=== PATIENT | female | born 1945 | race Caucasian/White ===

== ENCOUNTER → 2021-04-30 | Outpatient (CLI) | payer MEDICARE, OTHER | LOC: MAMMO 12:52 | PROVIDERS: ATTEND Family Medicine | DX: Z12.31 Encounter for screening mammogram for malignant neoplasm of breast (principal) | CPT/HCPCS: 77063; 77067 ==

== ENCOUNTER 2021-05-29 13:06 | Emergency (ER) | payer MEDICARE, OTHER ==
[~2021-05-29] VITALS: Ht 157.5 cm; Wt 59.0 kg
[2021-05-29 13:06] VITALS: BP 137/87
--- NOTE | 2021-05-29 13:47 | PHYS DOC ---
Past History Past Medical History: Arthritis, CAD, Diabetes, Hypotension, MN, Other Additional Past Medical Histor: BARRETTS SYNDROME, POLYMYALGIA RHEUMATICA Past Surgical History: Angioplasty, Cholecystectomy, Lumbar Laminectomy, Tonsillectomy, Other Additional Past Surgical Histo: SPINAL FUSION, TEMPORAL ARTERY BIOPSY Smoking: Non-smoker General Adult EDM: Chief Complaint: MULTIPLE COMPLAINTS HPI: HPI: Patient is a 75-year-old female that presents today with a scalp laceration after syncopal episode. Patient states that yesterday at around 5:30 AM while she was standing in the bathroom she believes she had a syncopal episode, sustaining a scalp laceration. She presents today because the scalp laceration continues to bleed, she said she has multiple syncopal episodes in the past never resulting in a laceration. Patient does have a past medical history of coronary artery disease for which she had an MN and stent placement in 2018 she also has a history according to her has hypotension she also has diabetes, polymyalgia rheumatica, patient is also had a temporal biopsy in the past she also has had multiple spinal surgeries and procedures. Patient states her last tetanus shot was in November 2020 Review of Systems: Review of Systems: Constitutional: Denies fever or chills Eyes: Denies change in visual acuity HENT: Denies nasal congestion or sore throat Respiratory: Denies cough or shortness of breath Cardiovascular: Denies chest pain or edema GI: Denies abdominal pain, nausea, vomiting, bloody stools or diarrhea : Denies dysuria Musculoskeletal: Denies back pain or joint pain Integument: Scalp laceration Neurologic: Syncopal episode denies headache, focal weakness or sensory changes Endocrine: Denies polyuria or polydipsia Lymphatic: Denies swollen glands Psychiatric: Denies depression or anxiety Physical Exam: PE: Constitutional: Well developed, well nourished, no acute distress, non-toxic appearance. [] HENT: Inspection and palpation of shows laceration/abrasion to the right parietal scalp area, oozing noted, no crepitus noted Eyes: PERRLA, EOMI, conjunctiva normal, no discharge. [] Neck: Normal range of motion, no tenderness, supple, no stridor, no midline tenderness Cardiovascular:Heart rate regular rhythm, no murmur [] Lungs & Thorax: Bilateral breath sounds clear to auscultation [] Abdomen: Bowel sounds normal, soft, no tenderness, no masses, no pulsatile masses. [] Skin: Warm, dry, no erythema, no rash. [] Back: No tenderness, no CVA tenderness. [] Extremities: No tenderness, no cyanosis, no clubbing, ROM intact, no edema. [] Neurologic: Alert and oriented X 3, normal motor function, normal sensory function, no focal deficits noted. [] Psychologic: Affect normal, judgement normal, mood normal. [] Current Patient Data: Labs: Laboratory Tests Test 05/29/21 13:58 White Blood Count 10.0 x10^3/uL Red Blood Count 4.61 x10^6/uL Hemoglobin 13.6 g/dL Hematocrit 40.9 % Mean Corpuscular Volume 89 fL Mean Corpuscular Hemoglobin 30 pg Mean Corpuscular Hemoglobin Concent 33 g/dL Red Cell Distribution Width 13.7 % Platelet Count 207 x10^3/uL Neutrophils (%) (Auto) 66 % Lymphocytes (%) (Auto) 23 % Monocytes (%) (Auto) 7 % Eosinophils (%) (Auto) 4 % Basophils (%) (Auto) 0 % Neutrophils # (Auto) 6.6 x10^3uL Lymphocytes # (Auto) 2.3 x10^3/uL Monocytes # (Auto) 0.7 x10^3/uL Eosinophils # (Auto) 0.4 x10^3/uL Basophils # (Auto) 0.0 x10^3/uL D-Dimer (Lorraine) 3.24 mg/L Sodium Level 135 mmol/L Potassium Level 3.9 mmol/L Chloride Level 97 mmol/L Carbon Dioxide Level 28 mmol/L Anion Gap 10 Blood Urea Nitrogen 14 mg/dL Creatinine 0.8 mg/dL Estimated GFR (Cockcroft-Gault) 70.1 BUN/Creatinine Ratio 18 Glucose Level 162 mg/dL Calcium Level 9.6 mg/dL Total Bilirubin 0.4 mg/dL Aspartate Amino Transf (AST/SGOT) 36 U/L Alanine Aminotransferase (ALT/SGPT) 28 U/L Alkaline Phosphatase 110 U/L Troponin I High Sensitivity 9 ng/L Total Protein 7.3 g/dL Albumin 4.2 g/dL Albumin/Globulin Ratio 1.4 Vital Signs: Vital Signs Date Time Temp Pulse Resp B/P (MAP) Pulse Ox O2 Delivery O2 Flow Rate FiO2 05/29/21 13:06 97.7 83 137/87 (104) 100 05/29/21 13:06 83 18 137/87 (104) 100 Room Air Vital Signs Date Time Temp Pulse Resp B/P (MAP) Pulse Ox O2 Delivery O2 Flow Rate FiO2 05/29/21 13:06 97.7 83 137/87 (104) 100 05/29/21 13:06 83 18 137/87 (104) 100 Room Air EKG: EKG: EKG done at [address] Martinez at 1344 no STEMI heart rate of 78 shows sinus rhythm with a left axis deviation NV interval of 162 ms with a QTC of 423 ms Radiology/Procedures: Radiology/Procedures: [REASON: SYNCOPAL EPISODE PROCEDURE: CT HEAD AND CERVICAL SPINE WO EXAM: CT head and cervical spine without contrast INDICATION: Syncopal episode COMPARISON: None TECHNIQUE: Axial CT imaging through the head and cervical spine without intravenous contrast. Sagittal and coronal reformats were obtained. One or more of the following individualized dose reduction techniques were utilized for this examination: 1. Automated exposure control 2. Adjustment of the mA and/or kV according to patient size 3. Use of iterative reconstruction technique. FINDINGS: CT head: The ventricles and sulci are mildly enlarged. Gillis-white matter differentiation is maintained. There is no intracranial hemorrhage, acute infarct, or mass lesion. Basal cisterns are clear. The skull is intact. There is a small right parietal scalp hematoma. Paranasal sinuses and mastoid air cells are clear. Globes and orbits are intact. CT cervical spine: Mild superior endplate compression fracture of C7 with 25 percent height loss and no retropulsion. Probable additional superior endplate compression fracture of T1 with 20 percent height loss and no retropulsion. There is 2 mm anterolisthesis of C5 on C6. Disc spaces are maintained. Multilevel facet arthrosis, greater on the left. There is moderate left foraminal narrowing at C 3-C4 and C5-C6 related to uncovertebral joint proliferation and facet arthrosis. Multinodular thyroid gland. Lung apices are clear. IMPRESSION: 1. No acute intracranial abnormality. Small right parietal scalp hematoma. 2. Mild compression fracture C7 with 25 percent height loss and no retropulsion. 3. Suspected additional compression fracture of T1 with 20 percent height loss and no retropulsion. 4. Multinodular thyroid gland. Electronically signed by: Cyndie Hilliard MD (05/29/2021 2:10 PM) [id number] REASON: SYNCOPAL EPISODE PROCEDURE: CHEST AP ONLY XR CHEST 1V INDICATION: SYNCOPAL EPISODE COMPARISON STUDY: None. FINDINGS: Lungs: Normal lung volume. No pulmonary mass or consolidation. The tracheobronchial tree and hilar structures are normal. Pleura: No pleural effusion or pneumothorax. Heart and Mediastinum: The cardiomediastinal silhouette is normal. The great vessels of the thorax are normal. IMPRESSION: No acute cardiopulmonary process. Electronically signed by: Bishnu Lee MD (05/29/2021 2:42 PM) [id number] REASON: SYNCOPAL EPISODE AND ELEVATED DDIMER, OMNI 350, 75ml PROCEDURE: CT ANGIOGRAPHY CHEST Exam Date: 05/29/2021 3:30 PM CTA CHEST Indication: Reason: SYNCOPAL EPISODE AND ELEVATED DDIMER, OMNI 350, 75ml / Spl. Instructions: / History: . TECHNIQUE: CT angiogram of the chest was performed following the administration of nonionic intravenous contrast for evaluation of pulmonary embolus. 3D MIPs were created and reviewed on an independent workstation to assist in diagnosis and clinical management. One or more of the following dose reduction techniques were utilized: *Automated exposure control (AEC) *Adjustment of mA and/or kV according to patient size *Use of iterative reconstruction technique *CT scan done according to ALARA, or ALARA/IMAGE GENTLY FINDINGS: There is adequate opacification of the pulmonary arteries. No central intravascular filling defects are appreciated. There is no evidence for central pulmonary embolus. The aorta is normal in caliber without evidence for dissection. Aortic calcifications are present. The heart is normal in size without pericardial effusion. Coronary artery calcifications are present. The right lobe of thyroid gland is enlarged with ill-defined hypodensities, likely representing underlying thyroid nodules. No lymphadenopathy is seen. There is a 6 mm noncalcified nodule in the left lung base on image 93 series 4. There is a 5 mm nodule on the left on image 73. A few additional smaller lung nodules are seen bilaterally. There is an 8 mm groundglass opacity in the right lung base on images 102-103. The central airways are patent. There is no focal consolidation, pleural effusion or pneumothorax. Images of the upper abdomen demonstrate cholecystectomy clips and bilateral renal cysts. Degenerative changes are seen in the spine. IMPRESSION: No evidence for central pulmonary embolus. Noncalcified lung nodules measuring 6 mm or less. 8 mm groundglass opacity noted in the right lung base. According to the 2017 Fleischner Society Guidelines for Management of Incidental Pulmonary Nodules Detected on CT, for groundglass nodules greater than or equal to 6 mm in diameter a follow up CT is recommended in 6-12 months to confirm persistence. Then, if stable, a CT every 2 years until 5 years is recommended to confirm stability. Enlarged right lobe of thyroid gland with ill-defined hypodensities, likely representing underlying thyroid nodules. Further nonemergent thyroid workup and/or imaging can be performed as clinically indicated. Electronically signed by: Sonu Bass MD (05/29/2021 3:57 PM) [id number] ] Heart Score: C/O Chest Pain: N/A Risk Factors: Risk Factors: DM, Current or recent (<one month) smoker, HTN, HLP, family history of CAD, obesity. Risk Scores: Score 0 - 3: 2.5% MACE over next 6 weeks - Discharge Home Score 4 - 6: 20.3% MACE over next 6 weeks - Admit for Clinical Observation Score 7 - 10: 72.7% MACE over next 6 weeks - Early Invasive Strategies Course & Med Decision Making: Course & Med Decision Making Pertinent Labs and Imaging studies reviewed. (See chart for details) 1450 D-dimer was noted to be elevated CTA of the chest will be ordered. Laceration on the scalp was cleansed by the nurses since this laceration was over 24 hours old I have elected not to suture it. [address] Rachel regarding CT results of a C7 compression fracture and a T1 compression fracture, he recommends that the patient is not having any pain or any numbness or tingling in her arms that she should follow-up with her primary care physician for further management of this. 1650 reviewed radiological and laboratory results with patient and her , I did recommend that due to her past medical history of coronary artery disease and diabetes and the fact that she had a syncopal episode I recommended that she be admitted to the hospital she at this time is declining she wishes to go home and to follow-up with her primary care physician for further management of this. Patient's vital signs are stable, she is alert and orientated x3 and a [place] Coma Scale of 15, patient continues to ooze from her wound on her scalp I did inform her that that will happen over the next couple of days and should get better over time. Dressing will be placed on the wound on her scalp she is to follow-up with her primary care physician tomorrow for further management of her neck and her syncopal episode. I did encourage the and patient to return to the hospital if she does have another syncopal episode for admitting purposes. Anyi Disclaimer: Anyi Disclaimer: This electronic medical record was generated, in whole or in part, using a voice recognition dictation system. Departure Departure: Impression: Primary Impression: Syncopal episodes Qualified Codes: R55 - Syncope and collapse Additional Impressions: Laceration of scalp Qualified Codes: S01.01XA - Laceration without foreign body of scalp, initial encounter Cervical compression fracture Qualified Codes: S12.690A - Other displaced fracture of seventh cervical vertebra, initial encounter for closed fracture Thoracic compression fracture Qualified Codes: S22.010A - Wedge compression fracture of first thoracic vertebra, initial encounter for closed fracture Disposition: 01 HOME / SELF CARE / HOMELESS Condition: STABLE Referrals: RIC PARIKH (PCP) Patient Instructions: Abrasion, [id number], Facial or Scalp Contusion, Syncope Additional Instructions: Continue all your home medications Follow-up with your primary care physician by phone tomorrow for an appointment for further management of your compression fractures in your back and also your syncopal episodes Return to the emergency department if you have another syncopal episode. Tylenol and/or ibuprofen as needed for pain CALI JAIN APRN May 29, 2021 13:47
--- NOTE | 2021-05-29 14:06 | EKG ---
[address] [address] Test Date: 2021-05-29 Test Time: 13:43:23 Pat Name: CARLOS FRAGA Department: Room: Gender: F Meeting Specialist: CALDERON : 1945 Requested By: CALI JAIN Order Number: [id number] Reading MD: Max Dior Measurements Intervals Bradley Rate: 78 P: 48 FL: 162 QRS: -50 QRSD: 100 T: 79 QT: 368 QTc: 423 Interpretive Statements SINUS RHYTHM ABNORMAL LEFT AXIS DEVIATION LEFT ANTERIOR FASCICULAR BLOCK NON SPECIFIC ST-T WAVE CHANGES Electronically Signed On 05-31-2021 16:46:49 MANAGER READING by Max Dior
--- NOTE | 2021-05-29 14:12 | RAD ---
EXAM: CT head and cervical spine without contrast INDICATION: Syncopal episode COMPARISON: None TECHNIQUE: Axial CT imaging through the head and cervical spine without intravenous contrast. Sagitta l and coronal reformats were obtained. One or more of the following individualized dose reduction techniques were utilized for this examinat ion: 1. Automated exposure control 2. Adjustment of the mA and/or kV according to patient size 3. Use of iterative reconstruction technique. FINDINGS: CT head: The ventricles and sulci are mildly enlarged. Gillis-white matter differentiation is maintained. There is no intracranial hemorrhage, acute infarct, or mass lesion. Basal cisterns are clear. The skull is intact. There is a small right parietal scalp hematoma. Paranasal sinuses and mastoid air cells are c lear. Globes and orbits are intact. CT cervical spine: Mild superior endplate compression fracture of C7 with 25 percent height loss and no retropulsion. Pr obable additional superior endplate compression fracture of T1 with 20 percent height loss and no ret ropulsion. There is 2 mm anterolisthesis of C5 on C6. Disc spaces are maintained. Multilevel facet ar throsis, greater on the left. There is moderate left foraminal narrowing at C3-C4 and C5-C6 related t o uncovertebral joint proliferation and facet arthrosis. Multinodular thyroid gland. Lung apices are clear. IMPRESSION: 1. No acute intracranial abnormality. Small right parietal scalp hematoma. 2. Mild compression fracture C7 with 25 percent height loss and no retropulsion. 3. Suspected additional compression fracture of T1 with 20 percent height loss and no retropulsion. 4. Multinodular thyroid gland. Electronically signed by: Cyndie Hilliard MD (05/29/2021 2:10 PM) [id number]
[2021-05-29 14:18] LABS: BASO % 0 % (0-3); EOS # 0.4 x10^3/uL (0.0-0.7); EOS % 4 % (0-3); HEMATOCRIT 40.9 % (36.0-47.0); HEMOGLOBIN 13.6 g/dL (12.0-15.5); LYMPH # 2.3 x10^3/uL (1.0-4.8); LYMPH % 23 % (24-48); MEAN CORPUSCULAR HEMOGLOBIN 30 pg (25-35); MEAN CORPUSCULAR HGB CONC 33 g/dL (31-37); MEAN CORPUSCULAR VOLUME 89 fL (79-100); MONO # 0.7 x10^3/uL (0.0-1.1); MONO % 7 % (0-9); NEUT # 6.6 x10^3uL (1.8-7.7); NEUT % 66 % (31-73); PLATELET COUNT 207 x10^3/uL (140-400); RED BLOOD COUNT 4.61 x10^6/uL (3.50-5.40); RED CELL DISTRIBUTION WIDTH 13.7 % (11.5-14.5)
[2021-05-29 14:32] LABS: CALCIUM 9.6 mg/dL (8.5-10.1); CREATININE 0.8 mg/dL (0.6-1.0); GFR 70.1; POTASSIUM 3.9 mmol/L (3.5-5.1)
[2021-05-29 14:38] LABS: ALBUMIN 4.2 g/dL (3.4-5.0); ALBUMIN/GLOBULIN RATIO 1.4 (1.0-1.7); TOTAL BILIRUBIN 0.4 mg/dL (0.2-1.0); TOTAL PROTEIN 7.3 g/dL (6.4-8.2)
--- NOTE | 2021-05-29 14:44 | RAD ---
XR CHEST 1V INDICATION: SYNCOPAL EPISODE COMPARISON STUDY: None. FINDINGS: Lungs: Normal lung volume. No pulmonary mass or consolidation. The tracheobronchial tree and hilar st ructures are normal. Pleura: No pleural effusion or pneumothorax. Heart and Mediastinum: The cardiomediastinal silhouette is normal. The great vessels of the thorax ar e normal. IMPRESSION: No acute cardiopulmonary process. Electronically signed by: Bishnu Lee MD (05/29/2021 2:42 PM) [id number]
[2021-05-29] MEDS ORDERED: IOHEXOL 350 MG/ML 100 ML VIAL. IV ONE (15:15)
[2021-05-29] MEDS ORDERED: CONTRAST GIVEN. MC PRN (15:15)
--- NOTE | 2021-05-29 15:59 | RAD ---
Exam Date: 05/29/2021 3:30 PM CTA CHEST Indication: Reason: SYNCOPAL EPISODE AND ELEVATED DDIMER, OMNI 350, 75ml / Spl. Instructions: / Hist ory: . TECHNIQUE: CT angiogram of the chest was performed following the administration of nonionic intrave nous contrast for evaluation of pulmonary embolus. 3D MIPs were created and reviewed on an [employer] workstation to assist in diagnosis and clinical management. One or more of the following dose red uction techniques were utilized: *Automated exposure control (AEC) *Adjustment of mA and/or kV according to patient size *Use of iterative reconstruction technique *CT scan done according to ALARA, or ALARA/IMAGE GENTLY FINDINGS: There is adequate opacification of the pulmonary arteries. No central intravascular filling defects are appreciated. There is no evidence for central pulmonary embolus. The aorta is normal in caliber without evidence for dissection. Aortic calcifications are present. The heart is normal in size without pericardial effusion. Coronary artery calcifications are present . The right lobe of thyroid gland is enlarged with ill-defined hypodensities, likely representing under lying thyroid nodules. No lymphadenopathy is seen. There is a 6 mm noncalcified nodule in the left lung base on image 93 series 4. There is a 5 mm nodu le on the left on image 73. A few additional smaller lung nodules are seen bilaterally. There is an 8 mm groundglass opacity in the right lung base on images 102-103. The central airways are patent. There is no focal consolidation, pleural effusion or pneumothorax. Images of the upper abdomen demonstrate cholecystectomy clips and bilateral renal cysts. Degenerativ e changes are seen in the spine. IMPRESSION: No evidence for central pulmonary embolus. Noncalcified lung nodules measuring 6 mm or less. 8 mm groundglass opacity noted in the right lung b ase. According to the 2017 Fleischner Society Guidelines for Management of Incidental Pulmonary Nodu les Detected on CT, for groundglass nodules greater than or equal to 6 mm in diameter a follow up CT is recommended in 6-12 months to confirm persistence. Then, if stable, a CT every 2 years until 5 yea rs is recommended to confirm stability. Enlarged right lobe of thyroid gland with ill-defined hypodensities, likely representing underlying t hyroid nodules. Further nonemergent thyroid workup and/or imaging can be performed as clinically ind icated. Electronically signed by: Sonu Bass MD (05/29/2021 3:57 PM) [id number]
== END 2021-05-29 17:03 | disposition home or self-care (01) ==
LOC: ER 13:06
DX: S12.690A Other displaced fracture of seventh cervical vertebra, initial encounter for closed fracture (principal); S22.010A Wedge compression fracture of first thoracic vertebra, initial encounter for closed fracture; S01.01XA Laceration without foreign body of scalp, initial encounter; R55 Syncope and collapse; M19.90 Unspecified osteoarthritis, unspecified site; I25.10 Atherosclerotic heart disease of native coronary artery without angina pectoris; E11.9 Type 2 diabetes mellitus without complications; I25.2 Old myocardial infarction; W18.39XA Other fall on same level, initial encounter; Y93.89 Activity, other specified; Y92.89 Other specified places as the place of occurrence of the external cause; Y99.8 Other external cause status
CPT/HCPCS: 36415; 70450; 71045; 71275; 72125; 80053; 84484; 85025; 85379; 93005; 99285; Q9967